=== PATIENT | male | born 1970 | race Native Hawaiian/Other Pacific Islander ===

== ENCOUNTER 2017-03-23 01:27 | Emergency (ER) | payer OTHER ==
[~2017-03-23] VITALS: Ht 172.7 cm; Wt 77.1 kg
== END 2017-03-23 03:09 | disposition home or self-care (01) ==
LOC: ED 01:27
DX: Z13.89 Encounter for screening for other disorder (principal)
CPT/HCPCS: 81000; 99281

== ENCOUNTER 2017-04-07 20:48 | Emergency (ER) | payer OTHER ==
[~2017-04-07] VITALS: Ht 167.6 cm; Wt 79.4 kg
== END 2017-04-07 22:36 | disposition home or self-care (01) ==
LOC: ED 20:48
DX: S22.31XA Fracture of one rib, right side, initial encounter for closed fracture (principal); S40.011A Contusion of right shoulder, initial encounter; W17.89XA Other fall from one level to another, initial encounter; Y93.55 Activity, bike riding; Y92.488 Other paved roadways as the place of occurrence of the external cause
CPT/HCPCS: 96372; 99283; J1885

== ENCOUNTER 2017-04-11 23:22 | Emergency (ER) | payer OTHER ==
[~2017-04-11] VITALS: Ht 172.7 cm; Wt 79.4 kg
== END 2017-04-12 00:30 | disposition home or self-care (01) ==
LOC: ED 23:22
DX: S22.31XA Fracture of one rib, right side, initial encounter for closed fracture (principal)
CPT/HCPCS: 99282

== ENCOUNTER 2017-05-26 01:14 | Emergency (ER) | payer OTHER ==
[~2017-05-26] VITALS: Ht 172.7 cm; Wt 74.8 kg
== END 2017-05-26 02:01 | disposition home or self-care (01) ==
LOC: ED 01:14
DX: S50.862A Insect bite (nonvenomous) of left forearm, initial encounter (principal); M89.8X1 Other specified disorders of bone, shoulder; W57.XXXA Bitten or stung by nonvenomous insect and other nonvenomous arthropods, initial encounter; Y92.098 Other place in other non-institutional residence as the place of occurrence of the external cause
CPT/HCPCS: 99281

== ENCOUNTER 2017-06-14 21:36 | Emergency (ER) | payer OTHER ==
[~2017-06-14] VITALS: Ht 172.7 cm; Wt 77.1 kg
[2017-06-14 22:31] LABS: PLATELET COUNT 206 K/uL (142-355)
[2017-06-14 22:41] LABS: POTASSIUM 3.7 mmol/L (3.6-5.2); SODIUM 137 mmol/L (136-145)
[2017-06-14 23:01] VITALS: BP 120/78; TEMP 98.5
== END 2017-06-14 23:05 | disposition home or self-care (01) ==
LOC: ED 21:36
DX: K52.89 Other specified noninfective gastroenteritis and colitis (principal)
CPT/HCPCS: 36415; 80053; 85027; 99283

== ENCOUNTER 2017-07-21 21:46 | Emergency (ER) | payer OTHER ==
[~2017-07-21] VITALS: Ht 172.7 cm; Wt 77.1 kg
[2017-07-21 22:24] VITALS: BP 117/82; TEMP 97.9
== END 2017-07-21 22:24 | disposition home or self-care (01) ==
LOC: ED 21:46
DX: S90.821A Blister (nonthermal), right foot, initial encounter (principal)
CPT/HCPCS: 99281

== ENCOUNTER 2017-07-28 10:02 | Emergency (ER) | payer OTHER ==
[~2017-07-28] VITALS: Ht 172.7 cm; Wt 76.7 kg
[2017-07-28 10:13] VITALS: TEMP 98.4
[2017-07-28 11:36] VITALS: BP 142/90
== END 2017-07-28 11:45 | disposition home or self-care (01) ==
LOC: ED 10:02
DX: S61.411A Laceration without foreign body of right hand, initial encounter (principal); L08.9 Local infection of the skin and subcutaneous tissue, unspecified
CPT/HCPCS: 99282

== ENCOUNTER 2017-07-28 22:37 | Emergency (ER) | payer OTHER ==
[~2017-07-28] VITALS: Ht 172.7 cm; Wt 74.4 kg
[2017-07-28 22:59] VITALS: BP 97/70; TEMP 98.5
== END 2017-07-28 23:10 | disposition home or self-care (01) ==
LOC: ED 22:37
DX: R09.89 Other specified symptoms and signs involving the circulatory and respiratory systems (principal)
CPT/HCPCS: 99281

== ENCOUNTER 2017-07-29 23:46 | Emergency (ER) | payer OTHER ==
[~2017-07-29] VITALS: Ht 172.7 cm; Wt 74.4 kg
[2017-07-29 23:52] VITALS: BP 118/72; TEMP 98.2
== END 2017-07-30 00:11 | disposition home or self-care (01) ==
LOC: ED 23:46
DX: S61.411A Laceration without foreign body of right hand, initial encounter (principal)
CPT/HCPCS: 99281

== ENCOUNTER 2017-07-30 23:31 | Emergency (ER) | payer OTHER ==
[~2017-07-30] VITALS: Ht 172.7 cm; Wt 74.8 kg
[2017-07-31 00:18] VITALS: BP 110/72; TEMP 97.8
== END 2017-07-31 00:38 | disposition home or self-care (01) ==
LOC: ED 23:31
DX: R19.7 Diarrhea, unspecified (principal)
CPT/HCPCS: 99281

== ENCOUNTER 2017-08-23 21:00 | Emergency (ER) | payer OTHER ==
[~2017-08-23] VITALS: Ht 172.7 cm; Wt 74.4 kg
[2017-08-23 21:18] VITALS: BP 110/73; TEMP 97.7
== END 2017-08-23 22:00 | disposition home or self-care (01) ==
LOC: ED 21:00
DX: R21 Rash and other nonspecific skin eruption (principal); R05 Cough; Z01.00 Encounter for examination of eyes and vision without abnormal findings
CPT/HCPCS: 99281

== ENCOUNTER 2017-09-30 22:41 | Emergency (ER) | payer OTHER ==
[~2017-09-30] VITALS: Ht 172.7 cm; Wt 78.5 kg
[2017-09-30 23:25] VITALS: BP 109/70; TEMP 98.1
== END 2017-09-30 23:30 | disposition home or self-care (01) ==
LOC: ED 22:41
PROC: 0HQFXZZ Repair Right Hand Skin, External Approach (ICD-10-PCS; principal; 2017-09-30)
DX: S61.216A Laceration without foreign body of right little finger without damage to nail, initial encounter (principal); W45.8XXA Other foreign body or object entering through skin, initial encounter; Y93.89 Activity, other specified; Y92.098 Other place in other non-institutional residence as the place of occurrence of the external cause
CPT/HCPCS: 90471; 90715; 99283; J7040

== ENCOUNTER 2017-10-21 01:16 | Emergency (ER) | payer OTHER ==
[~2017-10-21] VITALS: Ht 167.6 cm; Wt 65.8 kg
[2017-10-21 01:51] VITALS: BP 134/75; TEMP 98
== END 2017-10-21 01:33 | disposition home or self-care (01) ==
LOC: ED 01:16
DX: B80 Enterobiasis (principal)
CPT/HCPCS: 99281

== ENCOUNTER 2018-03-18 20:38 | Emergency (ER) | payer OTHER ==
[~2018-03-18] VITALS: Ht 172.7 cm; Wt 74.8 kg
[2018-03-18 22:25] LABS: PLATELET COUNT 210 K/uL (142-355)
[2018-03-18 22:32] VITALS: BP 112/90; TEMP 98.2
== END 2018-03-18 22:38 | disposition home or self-care (01) ==
LOC: ED 20:38
DX: F45.8 Other somatoform disorders (principal)
CPT/HCPCS: 36415; 85027; 99283

== ENCOUNTER 2018-03-31 06:03 | Emergency (ER) | payer OTHER ==
[~2018-03-31] VITALS: Ht 172.7 cm; Wt 73.5 kg
[2018-03-31 06:30] VITALS: BP 120/80; TEMP 97.2
[2018-03-31 07:15] LABS: PLATELET COUNT 310 K/uL (142-355)
[2018-03-31 07:39] LABS: POTASSIUM 4.2 mmol/L (3.6-5.2)
== END 2018-03-31 08:00 | disposition home or self-care (01) ==
LOC: ED 06:03
PROVIDERS: Family Medicine
DX: F45.8 Other somatoform disorders (principal); R05 Cough
CPT/HCPCS: 36415; 80053; 85027; 99283

== ENCOUNTER 2018-12-13 04:48 | Emergency (ER) | payer OTHER ==
[~2018-12-13] VITALS: Ht 172.7 cm; Wt 81.2 kg
[2018-12-13 05:54] LABS: PLATELET COUNT 219 K/uL (142-355)
[2018-12-13 06:00] LABS: POTASSIUM 3.3 mmol/L (3.6-5.2)
[2018-12-13 07:06] VITALS: BP 119/75; TEMP 98.3
== END 2018-12-13 07:11 | disposition home or self-care (01) ==
LOC: ED 04:48
PROVIDERS: Internal Medicine
DX: K52.89 Other specified noninfective gastroenteritis and colitis (principal); R31.9 Hematuria, unspecified
CPT/HCPCS: 36415; 74022; 80053; 81000; 85027; 99283

== ENCOUNTER 2019-07-14 23:01 | Emergency (ER) | payer OTHER ==
[~2019-07-14] VITALS: Ht 172.7 cm; Wt 72.6 kg
[2019-07-14 23:22] VITALS: BP 131/80; TEMP 97.7
== END 2019-07-15 02:30 | disposition home or self-care (01) ==
LOC: ED 23:01
PROC: 0HQ0XZZ Repair Scalp Skin, External Approach (ICD-10-PCS; principal; 2019-07-14)
DX: S01.01XA Laceration without foreign body of scalp, initial encounter (principal); S00.83XA Contusion of other part of head, initial encounter; Y09 Assault by unspecified means; Y92.89 Other specified places as the place of occurrence of the external cause
CPT/HCPCS: 90715; 96372; 99283; J7040

== ENCOUNTER 2019-07-31 04:50 | Emergency (ER) | payer OTHER ==
[~2019-07-31] VITALS: Ht 172.7 cm; Wt 72.6 kg
[2019-07-31 05:12] VITALS: BP 114/80; TEMP 97.3
== END 2019-07-31 05:39 | disposition home or self-care (01) ==
LOC: ED 04:50
DX: Z48.02 Encounter for removal of sutures (principal)

== ENCOUNTER 2021-02-11 17:21 | Emergency (ER) | payer OTHER ==
[~2021-02-11] VITALS: Ht 172.7 cm; Wt 72.6 kg
[2021-02-11 17:49] LABS: PLATELET COUNT 261 K/uL (142-355)
[2021-02-11 18:04] LABS: POTASSIUM 3.9 mmol/L (3.6-5.2)
[2021-02-11 21:20] VITALS: BP 129/82; TEMP 98.7
== END 2021-02-11 21:20 | disposition still patient (30) ==
LOC: ED 17:21
PROVIDERS: Family Medicine
DX: R10.84 Generalized abdominal pain (principal); R11.0 Nausea; F19.10 Other psychoactive substance abuse, uncomplicated
CPT/HCPCS: 36415; 80053; 80307; 81000; 82150; 83690; 85027; 96374; 96375; 99284; J1885; J2405; J3490; Q9963

== ENCOUNTER 2021-10-08 22:45 | Emergency (ER) | payer OTHER ==
[~2021-10-08] VITALS: Ht 172.7 cm; Wt 74.8 kg
[2021-10-09 01:01] LABS: PLATELET COUNT 257 K/uL (142-355)
[2021-10-09 01:06] LABS: POTASSIUM 3.9 mmol/L (3.6-5.2)
[2021-10-09 02:50] VITALS: BP 128/78; TEMP 98.4
== END 2021-10-09 02:50 | disposition home or self-care (01) ==
LOC: ED 22:45
PROVIDERS: Emergency Medicine
DX: B08.8 Other specified viral infections characterized by skin and mucous membrane lesions (principal); Z20.822 Contact with and (suspected) exposure to COVID-19
CPT/HCPCS: 36415; 80053; 83615; 84484; 85027; 85379; 87635; 93005; 99283; U0003

== ENCOUNTER 2022-06-22 16:10 | Emergency (ER) | payer OTHER ==
[~2022-06-22] VITALS: Ht 172.7 cm; Wt 70.3 kg
[2022-06-22 16:15] VITALS: BP 102/68; TEMP 100.1
== END 2022-06-22 17:23 | disposition home or self-care (01) ==
LOC: ED 16:10
DX: Z53.21 Procedure and treatment not carried out due to patient leaving prior to being seen by health care provider (principal)
CPT/HCPCS: 99281

== ENCOUNTER 2023-06-24 12:25 | Emergency (ER) | payer OTHER ==
[~2023-06-24] VITALS: Ht 172.7 cm; Wt 70.3 kg
[2023-06-24 12:39] VITALS: BP 113/76; TEMP 97.7
== END 2023-06-24 13:00 | disposition home or self-care (01) ==
LOC: ED 12:25
DX: Z53.21 Procedure and treatment not carried out due to patient leaving prior to being seen by health care provider (principal)
CPT/HCPCS: 99281